=== PATIENT | male | born 1945 | race Caucasian/White ===

== ENCOUNTER 2021-04-13 06:08 | Inpatient (IN) | payer OTHER ==
[2021-04-13 06:56] VITALS: BMI 29.5
[2021-04-13 07:27] LABS: BASO % 0.2 % (0-2.0); EOS % 0.1 % (0-4.5); HEMATOCRIT 37.5 % (35.4-49); LYMPH % 3.3 % (8-40); MCHC 34.7 g/dl (32.0-35.9); MEAN CELL VOLUME 89.4 fl (80-96); MEAN PLT VOLUME 9.2 fl (7.5-11.1); MONO % 5.9 % (3.8-10.2); NEUT % 90.5 % (42.8-82.8); PLATELET COUNT 251 10^3/uL (134-434); RDW 13.4 % (11.9-15.9); WHITE BLOOD COUNT 18.2 K/mm3 (4.0-10.0)
[2021-04-13 07:35] LABS: INR 0.96 (0.83-1.09); PROTHROMBIN TIME (PATIENT) 11.6 SEC (9.7-13.0)
[2021-04-13 07:47] LABS: CHLORIDE 100 mmol/L (98-107); SODIUM 138 mmol/L (136-145)
[2021-04-13 07:48] LABS: CALCIUM 9.5 mg/dL (8.5-10.1); LIPASE 137 U/L (73-393)
[2021-04-13 07:49] LABS: ANION GAP 8 MMOL/L (8-16); CO2 30 mmol/L (21-32); GLUCOSE,RANDOM 218 mg/dL (74-106); MAGNESIUM 1.7 mg/dL (1.8-2.4)
[2021-04-13 07:53] LABS: BILIRUBIN,TOTAL 0.6 mg/dL (0.2-1); CREATININE 1.5 mg/dL (0.55-1.3); PHOSPHOROUS 3.2 mg/dL (2.5-4.9); SGOT/AST 18 U/L (15-37); SGPT/ALT 20 U/L (13-61); TOT PROT 6.7 g/dl (6.4-8.2)
[2021-04-13 07:54] LABS: ALK PHOS 110 U/L (45-117)
[2021-04-13 09:13] LABS: URINE APPEARANCE CLEAR; URINE BILIRUBIN NEGATIVE (NEGATIVE); URINE COLOR YELLOW; URINE GLUCOSE (UA) 1+ (NEGATIVE); URINE KETONE NEGATIVE (NEGATIVE); URINE LEUK ESTERASE NEGATIVE (NEGATIVE); URINE NITRITE NEGATIVE (NEGATIVE); URINE PROTEIN NEGATIVE (NEGATIVE); URINE UROBILINOGEN 0.2 mg/dL (0.2-1.0)
[2021-04-13] MEDS ORDERED: MAGNESIUM 1GM/D5W - 1 GM/100 ML IVPB IVPB ONE (09:17)
[2021-04-13] MEDS ORDERED: ACETAMINOPHEN 1000 MG/100 ML VIAL (NON FORMULARY) IVPB ONE (11:22)
[2021-04-13] MEDS ORDERED: ACETAMINOPHEN INJECTION 100 ML IVPB ONE (11:23)
[2021-04-13] MEDS ORDERED: PIPERACILLIN/TAZOB 3.375 GM 3.375 GM in DEXTROSE 5%-WATER - 50 ML IVPB ONE (12:32)
[2021-04-13] MEDS ORDERED: LACTATED RINGERS SOLUTION 1000 ML INFUS.BAG IV ONE (12:32)
[2021-04-13] MEDS ORDERED: VANCOMYCIN 1 GM in D5W (PRE-DOCKED) 1,000 MG/250 ML IVPB ONE (12:33)
[2021-04-13] MEDS ORDERED: PIPERACILLIN/TAZOB 3.375 GM 3.375 GM/50 ML BAG IVPB ONE (12:48)
[2021-04-13 13:26] LABS: SARS COV-2 MOLECULAR Presumptive Positive (Negative)
[2021-04-13] MEDS ORDERED: VANCOMYCIN 1 GRAM (PRE-DOCKED) 1,000 MG/250 ML BAG IVPB ONE (13:39)
[2021-04-13] MEDS ORDERED: PIPERACILLIN/TAZOB 4.5 GM 4.5 GM in DEXTROSE 5%-WATER 100 ML IVPB SCH (15:15)
[2021-04-13] MEDS ORDERED: ACETAMINOPHEN 1000 MG/100 ML VIAL (NON FORMULARY) IVPB PRN (15:21)
[2021-04-13 16:01] LABS: LDH 172 U/L (87-246)
[2021-04-13 17:01] LABS: OPIATES, URI NEGATIVE (NEGATIVE); PHENCYCLIDINE,URINE NEGATIVE (NEGATIVE)
[2021-04-13 17:02] LABS: COCAINE, UR NEGATIVE (NEGATIVE); METHADONE, UR NEGATIVE (NEGATIVE); URINE BARBITURATES NEGATIVE (NEGATIVE); URINE BENZODIAZEPINES NEGATIVE (NEGATIVE)
[2021-04-13 17:09] LABS: URINE AMPHETAMINES NEGATIVE (NEGATIVE)
[2021-04-13] MEDS: SODIUM CHLORIDE 1,000 ML IV SCH (20:00)
[2021-04-13] MEDS ORDERED: PIPERACILLIN/TAZOBACTAM 4.5 GM VIAL IVPB ONE (20:46)
[2021-04-13] MEDS ORDERED: DEXTROSE 5%-WATER 100 ML IVPB ONE (20:46)
[2021-04-13] MEDS: PIPERACILLIN/TAZOB 4.5 GM 4.5 GM in DEXTROSE 5%-WATER 100 ML IVPB SCH (20:56)
[2021-04-13] MEDS: HEPARIN NA (PORCINE) 5,000 UNITS/ML 1ML VIAL SQ SCH (21:04)
[2021-04-13] MEDS: INSULIN SLIDING SCALE (NOVOLOG) 1 VIAL SQ SCH (21:15)
[2021-04-14] MEDS ORDERED: DEXTROSE 5%-WATER 100 ML IVPB ONE ×4 (02:46→21:00)
[2021-04-14] MEDS ORDERED: PIPERACILLIN/TAZOBACTAM 4.5 GM VIAL IVPB ONE ×4 (02:46→21:00)
[2021-04-14] MEDS: PIPERACILLIN/TAZOB 4.5 GM 4.5 GM in DEXTROSE 5%-WATER 100 ML IVPB SCH ×4 (03:00→21:28)
[2021-04-14] MEDS: HEPARIN NA (PORCINE) 5,000 UNITS/ML 1ML VIAL SQ SCH ×2 (05:32→14:22)
[2021-04-14] MEDS: INSULIN SLIDING SCALE (NOVOLOG) 1 VIAL SQ SCH ×3 (06:03→16:38)
[2021-04-14] MEDS: SODIUM CHLORIDE 1,000 ML IV SCH ×2 (08:00→18:21)
[2021-04-14 09:32] LABS: HEMATOCRIT 34.5 % (35.4-49); MCH 30.5 pg (25.7-33.7); MCHC 34.6 g/dl (32.0-35.9); MEAN CELL VOLUME 87.9 fl (80-96); PLATELET COUNT 177 10^3/uL (134-434); RBC 3.93 M/mm3 (4.00-5.60); RDW 13.6 % (11.9-15.9); WHITE BLOOD COUNT 25.4 K/mm3 (4.0-10.0)
[2021-04-14 09:37] LABS: INR 1.33 (0.83-1.09)
[2021-04-14 09:39] LABS: ACTIVATED PTT 30.9 SECONDS (25.2-36.5)
[2021-04-14 10:05] LABS: BLOOD UREA NITROGEN 21.3 mg/dL (7-18)
[2021-04-14 10:10] LABS: CREATININE 1.5 mg/dL (0.55-1.3)
[2021-04-14 10:12] LABS: TOT PROT 6.2 g/dl (6.4-8.2)
[2021-04-14 10:23] LABS: ANISOCYTOSIS 0; HELMET CELLS 0; HOWELL-JOLLY BODIES 0; MACROCYTOSIS 0; OVALOCYTE 0; PLATELET ESTIMATE NORMAL; ROULEAU 0; SICKELED CELLS 0; TARGET CELLS 0; TEAR DROP CELLS 0; TOXIC GRANULATION 0
[2021-04-14 10:25] LABS: ALBUMIN 2.8 g/dl (3.4-5.0)
[2021-04-14 10:34] LABS: BILIRUBIN,TOTAL 1.4 mg/dL (0.2-1)
[2021-04-14] MEDS ORDERED: SODIUM CHLORIDE 500 ML IV ONE (17:00)
[2021-04-14] MEDS ORDERED: morphine SULFATE 4 MG/ML VIAL IVPUSH PRN (18:03)
[2021-04-14 18:07] LABS: SARS-CoV-2 NAA Not Detected (Not Detected)
[2021-04-14] MEDS: ACETAMINOPHEN 1000 MG/100 ML VIAL (NON FORMULARY) IVPB PRN (18:21)
[2021-04-14] MEDS: KCL 10 MEQ IVPB 10 MEQ/100 ML INFUS.BAG IVPB SCH ×3 (18:54→21:28)
[2021-04-14] MEDS: MORPHINE SULFATE 2 MG/ML VIAL IVPUSH PRN (23:06)
[2021-04-15] MEDS ORDERED: PIPERACILLIN/TAZOBACTAM 4.5 GM VIAL IVPB ONE ×4 (02:37→20:52)
[2021-04-15] MEDS ORDERED: DEXTROSE 5%-WATER 100 ML IVPB ONE ×4 (02:37→20:53)
[2021-04-15] MEDS: PIPERACILLIN/TAZOB 4.5 GM 4.5 GM in DEXTROSE 5%-WATER 100 ML IVPB SCH ×4 (02:41→20:59)
[2021-04-15] MEDS: INSULIN SLIDING SCALE (NOVOLOG) 1 VIAL SQ SCH ×3 (06:15→17:47)
[2021-04-15] MEDS: SODIUM CHLORIDE 1,000 ML IV SCH ×3 (09:01→19:47)
[2021-04-15 10:15] LABS: BASO % 0.5 % (0-2.0); EOS % 0.2 % (0-4.5); HEMATOCRIT 36.2 % (35.4-49); HEMOGLOBIN 12.4 GM/dL (11.7-16.9); LYMPH % 4.9 % (8-40); MCH 30.1 pg (25.7-33.7); MCHC 34.2 g/dl (32.0-35.9); MEAN CELL VOLUME 88.3 fl (80-96); MEAN PLT VOLUME 9.2 fl (7.5-11.1); MONO % 6.9 % (3.8-10.2); NEUT % 87.5 % (42.8-82.8); PLATELET COUNT 156 10^3/uL (134-434); RDW 13.7 % (11.9-15.9); WHITE BLOOD COUNT 11.3 K/mm3 (4.0-10.0)
[2021-04-15 10:31] LABS: ALBUMIN 2.3 g/dl (3.4-5.0); BLOOD UREA NITROGEN 18.3 mg/dL (7-18); CALCIUM 7.5 mg/dL (8.5-10.1)
[2021-04-15 10:35] LABS: CREATININE 1.4 mg/dL (0.55-1.3)
[2021-04-15 10:36] LABS: BILIRUBIN,TOTAL 1.2 mg/dL (0.2-1)
[2021-04-15] MEDS: ACETAMINOPHEN 1000 MG/100 ML VIAL (NON FORMULARY) IVPB PRN (11:45)
[2021-04-15] MEDS: MORPHINE SULFATE 2 MG/ML VIAL IVPUSH PRN ×2 (15:32→22:41)
[2021-04-15] MEDS ORDERED: POTASSIUM CHLORIDE TABS 20 MEQ TABLET.ER (FP) PO ONE (18:27)
[2021-04-15] MEDS ORDERED: ACETAMINOPHEN 1000 MG/100 ML VIAL (NON FORMULARY) IVPB ONE (21:43)
[2021-04-16] MEDS ORDERED: PIPERACILLIN/TAZOBACTAM 4.5 GM VIAL IVPB ONE ×5 (02:03→20:38)
[2021-04-16] MEDS ORDERED: DEXTROSE 5%-WATER 100 ML IVPB ONE ×5 (02:04→20:39)
[2021-04-16] MEDS: PIPERACILLIN/TAZOB 4.5 GM 4.5 GM in DEXTROSE 5%-WATER 100 ML IVPB SCH ×4 (02:19→20:45)
[2021-04-16] MEDS: INSULIN SLIDING SCALE (NOVOLOG) 1 VIAL SQ SCH ×3 (06:16→17:07)
[2021-04-16] MEDS: MORPHINE SULFATE 2 MG/ML VIAL IVPUSH PRN ×2 (06:25→16:51)
[2021-04-16] MEDS ORDERED: INSULIN SLIDING SCALE (NOVOLOG) 1 VIAL SQ ONE (11:07)
[2021-04-16 14:04] LABS: BASO % 0.4 % (0-2.0); EOS % 0.8 % (0-4.5); LYMPH % 5.8 % (8-40); MCH 30.6 pg (25.7-33.7); MCHC 34.4 g/dl (32.0-35.9); MEAN CELL VOLUME 89.1 fl (80-96); MEAN PLT VOLUME 9.5 fl (7.5-11.1); MONO % 9.8 % (3.8-10.2); NEUT % 83.2 % (42.8-82.8); PLATELET COUNT 188 10^3/uL (134-434); RBC 3.93 M/mm3 (4.00-5.60)
[2021-04-16 14:42] LABS: CALCIUM 8.2 mg/dL (8.5-10.1)
[2021-04-16 14:44] LABS: CREATININE 1.5 mg/dL (0.55-1.3)
[2021-04-16] MEDS ORDERED: POTASSIUM CHLORIDE TABS 20 MEQ TABLET.ER (FP) PO ONE (15:40)
[2021-04-16] MEDS: HEPARIN NA (PORCINE) 5,000 UNITS/ML 1ML VIAL SQ SCH ×2 (16:56→21:03)
[2021-04-16] MEDS: POLYETHYLENE GLYCOL (HEALTHYLAX) 3350 17 GM PACKET PO SCH (17:06)
[2021-04-17] MEDS ORDERED: DEXTROSE 5%-WATER 100 ML IVPB ONE ×3 (02:39→21:28)
[2021-04-17] MEDS ORDERED: PIPERACILLIN/TAZOBACTAM 4.5 GM VIAL IVPB ONE ×3 (02:39→21:28)
[2021-04-17] MEDS: PIPERACILLIN/TAZOB 4.5 GM 4.5 GM in DEXTROSE 5%-WATER 100 ML IVPB SCH ×4 (03:16→22:10)
[2021-04-17] MEDS: HEPARIN NA (PORCINE) 5,000 UNITS/ML 1ML VIAL SQ SCH ×3 (05:48→22:10)
[2021-04-17] MEDS: MORPHINE SULFATE 2 MG/ML VIAL IVPUSH PRN ×3 (05:48→18:00)
[2021-04-17] MEDS: INSULIN SLIDING SCALE (NOVOLOG) 1 VIAL SQ SCH ×3 (06:07→17:30)
[2021-04-17] MEDS: SODIUM CHLORIDE 1,000 ML IV SCH (06:14)
[2021-04-17 09:01] LABS: BASO % 0.6 % (0-2.0); EOS % 1.6 % (0-4.5); HEMATOCRIT 33.2 % (35.4-49); HEMOGLOBIN 11.5 GM/dL (11.7-16.9); MCH 30.6 pg (25.7-33.7); MCHC 34.6 g/dl (32.0-35.9); MEAN CELL VOLUME 88.5 fl (80-96); MEAN PLT VOLUME 8.8 fl (7.5-11.1); MONO % 12.5 % (3.8-10.2); NEUT % 79.3 % (42.8-82.8); PLATELET COUNT 202 10^3/uL (134-434); RBC 3.75 M/mm3 (4.00-5.60); RDW 13.9 % (11.9-15.9); WHITE BLOOD COUNT 15.5 K/mm3 (4.0-10.0)
[2021-04-17 09:40] LABS: CREATININE 1.5 mg/dL (0.55-1.3)
[2021-04-17] MEDS ORDERED: DOCUSATE SODIUM 100 MG CAPSULE (FP) PO ONE (10:45)
[2021-04-17] MEDS: POLYETHYLENE GLYCOL (HEALTHYLAX) 3350 17 GM PACKET PO SCH ×2 (11:47→22:10)
[2021-04-17] MEDS: SENNOSIDES 8.6MG TABLET (FP) PO SCH ×2 (13:33→22:10)
[2021-04-18] MEDS ORDERED: PIPERACILLIN/TAZOBACTAM 4.5 GM VIAL IVPB ONE ×4 (01:50→22:21)
[2021-04-18] MEDS ORDERED: DEXTROSE 5%-WATER 100 ML IVPB ONE ×4 (01:50→22:21)
[2021-04-18] MEDS: PIPERACILLIN/TAZOB 4.5 GM 4.5 GM in DEXTROSE 5%-WATER 100 ML IVPB SCH ×4 (02:03→22:23)
[2021-04-18] MEDS: morphine SULFATE 4 MG/ML VIAL IVPUSH PRN ×2 (05:30→14:24)
[2021-04-18] MEDS: HEPARIN NA (PORCINE) 5,000 UNITS/ML 1ML VIAL SQ SCH ×3 (06:07→22:23)
[2021-04-18] MEDS: INSULIN SLIDING SCALE (NOVOLOG) 1 VIAL SQ SCH ×3 (06:08→18:22)
[2021-04-18] MEDS: SENNOSIDES 8.6MG TABLET (FP) PO SCH ×2 (10:57→22:23)
[2021-04-18] MEDS: POLYETHYLENE GLYCOL (HEALTHYLAX) 3350 17 GM PACKET PO SCH ×2 (10:57→22:23)
[2021-04-19] MEDS ORDERED: PIPERACILLIN/TAZOBACTAM 4.5 GM VIAL IVPB ONE ×4 (01:24→21:05)
[2021-04-19] MEDS ORDERED: DEXTROSE 5%-WATER 100 ML IVPB ONE ×4 (01:24→21:06)
[2021-04-19] MEDS: PIPERACILLIN/TAZOB 4.5 GM 4.5 GM in DEXTROSE 5%-WATER 100 ML IVPB SCH ×4 (03:21→21:12)
[2021-04-19] MEDS: INSULIN SLIDING SCALE (NOVOLOG) 1 VIAL SQ SCH ×3 (06:52→16:29)
[2021-04-19] MEDS: HEPARIN NA (PORCINE) 5,000 UNITS/ML 1ML VIAL SQ SCH ×4 (06:52→21:47)
[2021-04-19 08:59] LABS: BASO % 0.5 % (0-2.0); EOS % 2.1 % (0-4.5); HEMATOCRIT 32.8 % (35.4-49); HEMOGLOBIN 11.3 GM/dL (11.7-16.9); MCH 30.6 pg (25.7-33.7); MCHC 34.5 g/dl (32.0-35.9); MEAN CELL VOLUME 88.6 fl (80-96); MEAN PLT VOLUME 8.4 fl (7.5-11.1); MONO % 12.5 % (3.8-10.2); NEUT % 77.9 % (42.8-82.8); PLATELET COUNT 310 10^3/uL (134-434); RBC 3.71 M/mm3 (4.00-5.60); RDW 14.2 % (11.9-15.9); WHITE BLOOD COUNT 13.9 K/mm3 (4.0-10.0)
[2021-04-19 09:19] LABS: ALBUMIN 1.8 g/dl (3.4-5.0)
[2021-04-19 09:20] LABS: BLOOD UREA NITROGEN 18.9 mg/dL (7-18)
[2021-04-19 09:23] LABS: CREATININE 1.5 mg/dL (0.55-1.3); PHOSPHOROUS 2.8 mg/dL (2.5-4.9)
[2021-04-19 09:24] LABS: BILIRUBIN,TOTAL 1.9 mg/dL (0.2-1); TOT PROT 5.2 g/dl (6.4-8.2)
[2021-04-19] MEDS: morphine SULFATE 4 MG/ML VIAL IVPUSH PRN ×2 (10:30→17:44)
[2021-04-19] MEDS: POLYETHYLENE GLYCOL (HEALTHYLAX) 3350 17 GM PACKET PO SCH ×2 (10:31→21:13)
[2021-04-19] MEDS: SENNOSIDES 8.6MG TABLET (FP) PO SCH ×2 (10:31→21:13)
[2021-04-20] MEDS ORDERED: PIPERACILLIN/TAZOBACTAM 4.5 GM VIAL IVPB ONE ×3 (02:03→13:59)
[2021-04-20] MEDS ORDERED: DEXTROSE 5%-WATER 100 ML IVPB ONE ×3 (02:03→13:59)
[2021-04-20] MEDS: PIPERACILLIN/TAZOB 4.5 GM 4.5 GM in DEXTROSE 5%-WATER 100 ML IVPB SCH ×3 (02:39→14:03)
[2021-04-20] MEDS: INSULIN SLIDING SCALE (NOVOLOG) 1 VIAL SQ SCH ×3 (06:12→17:25)
[2021-04-20] MEDS: HEPARIN NA (PORCINE) 5,000 UNITS/ML 1ML VIAL SQ SCH ×3 (07:48→22:15)
[2021-04-20] MEDS: POLYETHYLENE GLYCOL (HEALTHYLAX) 3350 17 GM PACKET PO SCH ×2 (09:34→22:15)
[2021-04-20] MEDS: SENNOSIDES 8.6MG TABLET (FP) PO SCH ×2 (09:34→22:15)
[2021-04-20] MEDS: morphine SULFATE 4 MG/ML VIAL IVPUSH PRN (09:35)
[2021-04-20] MEDS ORDERED: ALBUTEROL SO4 HFA INHALER IH PRN (10:30)
[2021-04-21] MEDS: INSULIN SLIDING SCALE (NOVOLOG) 1 VIAL SQ SCH ×3 (06:02→17:26)
[2021-04-21] MEDS: HEPARIN NA (PORCINE) 5,000 UNITS/ML 1ML VIAL SQ SCH ×3 (06:02→22:03)
[2021-04-21 08:16] LABS: BASO % 0.6 % (0-2.0); EOS % 3.6 % (0-4.5); HEMATOCRIT 33.5 % (35.4-49); HEMOGLOBIN 11.4 GM/dL (11.7-16.9); MCH 30.3 pg (25.7-33.7); MCHC 34.2 g/dl (32.0-35.9); MEAN CELL VOLUME 88.7 fl (80-96); MEAN PLT VOLUME 8.1 fl (7.5-11.1); MONO % 8.6 % (3.8-10.2); NEUT % 78.2 % (42.8-82.8); PLATELET COUNT 487 10^3/uL (134-434); RBC 3.77 M/mm3 (4.00-5.60); RDW 14.3 % (11.9-15.9); WHITE BLOOD COUNT 13.2 K/mm3 (4.0-10.0)
[2021-04-21 08:28] LABS: CALCIUM 8.2 mg/dL (8.5-10.1)
[2021-04-21 08:29] LABS: BLOOD UREA NITROGEN 19.7 mg/dL (7-18)
[2021-04-21 08:32] LABS: CREATININE 1.4 mg/dL (0.55-1.3)
[2021-04-21 08:34] LABS: BILIRUBIN,TOTAL 0.8 mg/dL (0.2-1); TOT PROT 5.6 g/dl (6.4-8.2)
[2021-04-21] MEDS: POLYETHYLENE GLYCOL (HEALTHYLAX) 3350 17 GM PACKET PO SCH ×2 (11:45→21:39)
[2021-04-21] MEDS: SENNOSIDES 8.6MG TABLET (FP) PO SCH ×2 (11:46→21:39)
[2021-04-21] MEDS ORDERED: DEXTROSE 5%-WATER 100 ML IVPB ONE ×2 (16:37→21:40)
[2021-04-21] MEDS ORDERED: PIPERACILLIN/TAZOBACTAM 4.5 GM VIAL IVPB ONE ×2 (16:37→21:40)
[2021-04-21] MEDS: PIPERACILLIN/TAZOB 4.5 GM 4.5 GM in DEXTROSE 5%-WATER 100 ML IVPB SCH ×2 (16:45→22:03)
[2021-04-22] MEDS ORDERED: PIPERACILLIN/TAZOBACTAM 4.5 GM VIAL IVPB ONE ×5 (01:17→21:48)
[2021-04-22] MEDS ORDERED: DEXTROSE 5%-WATER 100 ML IVPB ONE ×4 (01:17→21:35)
[2021-04-22] MEDS: PIPERACILLIN/TAZOB 4.5 GM 4.5 GM in DEXTROSE 5%-WATER 100 ML IVPB SCH ×4 (03:20→21:49)
[2021-04-22] MEDS: INSULIN SLIDING SCALE (NOVOLOG) 1 VIAL SQ SCH ×3 (06:02→17:37)
[2021-04-22] MEDS: HEPARIN NA (PORCINE) 5,000 UNITS/ML 1ML VIAL SQ SCH ×3 (06:03→21:37)
[2021-04-22 08:54] LABS: HEMATOCRIT 35.4 % (35.4-49); HEMOGLOBIN 12.1 GM/dL (11.7-16.9); MCH 30.8 pg (25.7-33.7); MCHC 34.1 g/dl (32.0-35.9); MEAN CELL VOLUME 90.3 fl (80-96); MEAN PLT VOLUME 7.6 fl (7.5-11.1); PLATELET COUNT 547 10^3/uL (134-434); RBC 3.93 M/mm3 (4.00-5.60); RDW 14.2 % (11.9-15.9); WHITE BLOOD COUNT 13.6 K/mm3 (4.0-10.0)
[2021-04-22 09:09] LABS: CALCIUM 8.5 mg/dL (8.5-10.1)
[2021-04-22 09:10] LABS: BLOOD UREA NITROGEN 18.8 mg/dL (7-18)
[2021-04-22 09:13] LABS: CREATININE 1.5 mg/dL (0.55-1.3)
[2021-04-22] MEDS: SENNOSIDES 8.6MG TABLET (FP) PO SCH ×2 (09:28→21:37)
[2021-04-22] MEDS: POLYETHYLENE GLYCOL (HEALTHYLAX) 3350 17 GM PACKET PO SCH ×2 (09:28→21:37)
[2021-04-22] MEDS ORDERED: ACETAMINOPHEN 325 MG TABLET (FP) PO PRN (11:41)
[2021-04-23] MEDS ORDERED: PIPERACILLIN/TAZOBACTAM 4.5 GM VIAL IVPB ONE (02:50)
[2021-04-23] MEDS ORDERED: DEXTROSE 5%-WATER 100 ML IVPB ONE (02:50)
[2021-04-23] MEDS: PIPERACILLIN/TAZOB 4.5 GM 4.5 GM in DEXTROSE 5%-WATER 100 ML IVPB SCH ×2 (02:51→10:03)
[2021-04-23] MEDS ORDERED: metroNIDAZOLE 250 MG TABLET PO SCH (06:00)
[2021-04-23] MEDS: INSULIN SLIDING SCALE (NOVOLOG) 1 VIAL SQ SCH ×3 (06:33→18:24)
[2021-04-23] MEDS: HEPARIN NA (PORCINE) 5,000 UNITS/ML 1ML VIAL SQ SCH ×2 (06:52→15:48)
[2021-04-23] MEDS: POLYETHYLENE GLYCOL (HEALTHYLAX) 3350 17 GM PACKET PO SCH (10:08)
[2021-04-23] MEDS: SENNOSIDES 8.6MG TABLET (FP) PO SCH (10:08)
[2021-04-23 15:33] VITALS: BP 128/49; PULSE 78; TEMP 98.9
[2021-04-23] MEDS ORDERED: AMOX TR/POT CLAV 875MG/125MG TABLETS (FP) PO SCH (17:30)
== END 2021-04-23 16:32 | DRG 871 ==
LOC: JER 06:08 → JERBED 13:37 → J5S 19:25
PROVIDERS: ADMIT Student in an Organized Health Care Education/Training Program
PROC: 0F9430Z Drainage of Gallbladder with Drainage Device, Percutaneous Approach (ICD-10-PCS; principal; 2021-04-14)
DX: A41.51 Sepsis due to Escherichia coli [E. coli] (principal); G93.41 Metabolic encephalopathy; N17.9 Acute kidney failure, unspecified; K81.0 Acute cholecystitis; J98.11 Atelectasis; I10 Essential (primary) hypertension; E11.9 Type 2 diabetes mellitus without complications; E78.5 Hyperlipidemia, unspecified; K40.20 Bilateral inguinal hernia, without obstruction or gangrene, not specified as recurrent; I25.10 Atherosclerotic heart disease of native coronary artery without angina pectoris
CPT/HCPCS: 36415; 47490; 71045-TC-FY; 71250-TC; 74176-TC; 76705-TC; 76942-TC; 78226-TC; 80048; 80053; 80307; 81003; 82010; 82550; 82570; 82728; 82962; 83605; 83615; 83690; 83735; 84100; 84156; 84300; 84484; 85025; 85027; 85379; 85610; 85730; 86140; 86738; 86850; 86900; 86901; 87040; 87070; 87075; 87086; 87102; 87116; 87186; 87205; 87206; 87210; 87804; 87899; 93005; 93010; 94010; 97116-GP; 97162-GP; 99285-25; A9537; C1729; C1769; C9803; J0131; J1644; U0003; U0005

== ENCOUNTER 2021-09-25 04:25 | Day surgery (SDC) | payer OTHER ==
[2021-09-25] MEDS ORDERED: BUPIVACAINE HCL/PF 0.5% (5MG/ML) 10 ML VIAL ONE (10:20)
== END 2021-09-25 09:30 ==
LOC: JASU-SURG 04:25
PROVIDERS: ATTEND Surgery
DX: Z53.8 Procedure and treatment not carried out for other reasons (principal)

== ENCOUNTER 2021-10-16 04:12 | Day surgery (SDC) | payer OTHER ==
[2021-10-14 16:00] VITALS: BMI 24.5
[2021-10-16] MEDS ORDERED: ceFAZolin SODIUM 1 GM VIAL IVPB ONE (10:54)
[2021-10-16] MEDS ORDERED: BUPIVACAINE HCL/PF 0.5% (5 MG/ML) 30 ML VIAL IJ ONE (12:14)
[2021-10-16] MEDS ORDERED: ONDANSETRON 4 MG/2 ML VIAL IVPUSH PRN (13:52)
[2021-10-16 16:45] VITALS: BP 110/61; PULSE 68; TEMP 98
== END 2021-10-16 16:35 | disposition home or self-care (01) ==
LOC: JASU-SURG 04:12
PROVIDERS: ATTEND Surgery
PROC: 0FT44ZZ Resection of Gallbladder, Percutaneous Endoscopic Approach (ICD-10-PCS; principal; 2021-10-16 10:00)
DX: K80.10 Calculus of gallbladder with chronic cholecystitis without obstruction (principal)
CPT/HCPCS: 82962; 88304-TC; 94760